=== PATIENT | male | born 1985 | race Asian ===

== ENCOUNTER 2025-08-22 18:43 | Emergency (ER) | payer OTHER ==
[~2025-08-22] VITALS: Ht 167.6 cm; Wt 73.0 kg
[2025-08-22 18:48] VITALS: O2SAT 99
[2025-08-22 21:52] LABS: HEMATOCRIT. 43.5 % (42.0-52.0); HEMOGLOBIN. 14.3 g/dL (14.0-18.0); MEAN PLATELET VOLUME 8.7 fl (7.4-10.4); PLATELET 192 x1000/uL (130-400); RED BLOOD CELL COUNT 5.07 mill/uL (4.7-6.1); RED CELL DISTRIBUTION WIDTH 13.6 % (11.6-14.6)
[2025-08-22] MEDS: KETOROLAC 15MG/ML VIAL IV ONE (21:52)
[2025-08-22] MEDS: ONDANSETRON 4MG ODT PO ONE (21:54)
[2025-08-22 22:08] LABS: CREATININE 1.0 mg/dL (0.6-1.3); TROPONIN I HIGH SENSITIVITY 41 ng/L (3.0-53); UREA NITROGEN BLOOD 18 mg/dL (9-23)
[2025-08-22 22:12] LABS: LYMPHOCYTES % MANUAL 11.0 % (20.0-50.0); MONOCYTES % MANUAL 3.0 % (2.0-8.0); NEUTROPHILS % MANUAL 86.0 % (45.0-75.0); PLATELET ESTIMATE NORMAL
[2025-08-23 00:04] LABS: TROPONIN I HIGH SENSITIVITY 37 ng/L (3.0-53)
[2025-08-23 00:42] VITALS: BP 138/81; PULSE 70; RESP 16; TEMP 37.2; O2SAT 100
== END 2025-08-23 00:44 | disposition home or self-care (01) ==
LOC: ER 18:43
DX: R55 Syncope and collapse (principal); R11.0 Nausea; R51.9 Headache, unspecified
CPT/HCPCS: 99285; 71045; 80048; 85025; 84484; 36415; 93005; Q0162; J1885